=== PATIENT | male | born 1955 | race Caucasian/White ===

== ENCOUNTER 2017-09-10 20:49 | Emergency (ER) | payer BC ==
[2017-09-10 21:03] VITALS: BP 134/90; PULSE 74; TEMP 98; BMI 27.9
--- NOTE | 2017-09-10 22:11 | PDOC ---
History of Present Illness - General History Source: Patient Exam Limitations: No Limitations - History of Present Illness Initial Comments: 09/10/17 22:12 The patient is a 61 year old male, with significant past medical history of Crohns, HTN, mixed connective tissue disease and anxiety/depression, who presents today complaining of abdominal pain for approximately 5 days. The patient reports his abdominal pain began last Sunday and is diffuse and constant in nature. He describes it as a crampy ache. He rates it a 7-8/10. Patient reports his pain is worse with eating or drinking. He reports associated diarrhea, but denies any nausea, vomiting, or constipation. Patient reports presenting to [facility] yesterday, where he was hydrated and he began to feel mild alleviation. Today patient reports his diarrhea resolved, but his abdominal pain persists and is still cramping. He denies any associated weakness , body aches, malaise, fever, chills, cough, headache, or dizziness. He denies any dysuria, hematuria, frequency, or urgency. Allergies: NKDA Past Surgical History: Ileostomy Social History: Non smoker. No ETOH or recreational drug use. PCP: Dr. Vides <Baltazar Cevallos - Last Filed: 09/10/17 22:13> <Joselyn Cunha - Last Filed: 09/11/17 04:34> - General Chief Complaint: Pain, Acute Stated Complaint: ABDOMINAL CRAMPING X ONE WEEK Time Seen by Provider: 09/10/17 20:53 Past History <Baltazar Cevallos - Last Filed: 09/10/17 22:13> - Past Medical History COPD: No GI Disorders: Yes (CHRONE'S, COLITIS) HTN: Yes Psychiatric Problems: Yes (ANXIETY) Other medical history: DEPRESSION - Surgical History GI Surgery: Yes (ILEOSTOMY) - Immunization History Immunization Up to Date: Yes - Suicide/Smoking/Psychosocial Hx Smoking History: Never smoked Have you smoked in the past 12 months: No Information on smoking cessation initiated: No Hx Alcohol Use: No Drug/Substance Use Hx: No Substance Use Type: None <Joselyn Cunha - Last Filed: 09/11/17 04:34> - Past Medical History Allergies/Adverse Reactions: Allergies Allergy/AdvReac Type Severity Reaction Status Date / Time No Known Allergies Allergy Verified 09/10/17 20:51 Home Medications: Ambulatory Orders Frovatriptan Succinate [Frova] 2.5 mg PO DAILY PRN 10/08/15 Metoprolol Tartrate 50 mg PO BID 10/08/15 Ramipril 5 mg PO DAILY 10/08/15 Vilazodone Hydrochloride [Viibryd] 40 mg PO DAILY 09/10/16 Folic Acid 1 mg PO DAILY 09/10/17 Methotrexate Sodium [Methotrexate] 25 mg IJ WEEKLY 09/10/17 Hyoscyamine Sulfate [Levsin -] 0.125 mg PO Q8H PRN #10 tablet 09/11/17 Review of Systems - Review of Systems Able to Perform ROS?: Yes Comments:: 09/10/17 22:12 CONSTITUTIONAL: Absent: fever, no chills, no fatigue EYES: Absent: visual changes ENT: Absent: ear pain, no sore throat CARDIOVASCULAR: Absent: chest pain, no palpitations RESPIRATORY: Absent: cough, no SOB GI: Present: diffuse abdominal pain, diarrhea Absent: no nausea, no vomiting, no constipation GENITOURINARY: Absent: dysuria, no frequency, no hematuria MUSCULOSKELETAL: Absent: back pain, no arthralgia, no myalgia SKIN: Absent: rash NEURO: Absent: headache <Cevallos,Giomilsy - Last Filed: 09/10/17 22:13> *Physical Exam - Vital Signs Last Vital Signs Temp Pulse Resp BP Pulse Ox 98 F 74 16 134/90 100 09/10/17 20:59 09/10/17 20:59 09/10/17 20:59 09/10/17 20:59 09/10/17 20:59 <Cevallos,Giomilsy - Last Filed: 09/10/17 22:13> - Vital Signs Last Vital Signs Temp Pulse Resp BP Pulse Ox 98 F 74 16 134/90 100 09/10/17 20:59 09/10/17 20:59 09/10/17 20:59 09/10/17 20:59 09/10/17 20:59 - Physical Exam Comments: GENERAL: Adult male, alert and oriented 3, in mild distress secondary to abdominal cramping HEAD: Normal with no signs of trauma. EYES: PERRLA, EOMI, sclera anicteric, conjunctiva clear. ENT: Ears normal, nares patent, oropharynx clear without exudates. Dry mucous membranes. NECK: Normal range of motion, supple without lymphadenopathy, JVD, or masses. LUNGS: Breath sounds equal, clear to auscultation bilaterally. No wheezes, and no crackles. HEART:Regular rate and rhythm, normal S1 and S2 without murmur, rub or gallop. ABDOMEN:.normal bowel sounds; generalized minimal tenderness without guarding/ masses/rebound Ileostomy bag with minimal contents. NEUROLOGICAL: Cranial nerves II through XII grossly intact. Normal speech. No focal neurological deficits. MUSCULOSKELETAL: Back non-tender to palpation, no CVA tenderness SKIN: Warm, Dry, normal turgor, no rashes or lesions noted. <Joselyn Cunha - Last Filed: 09/11/17 04:34> ED Treatment Course - LABORATORY CBC & Chemistry Diagram: 09/10/17 11:20 <Joselyn Cunha - Last Filed: 09/11/17 04:34> Progress Note - Progress Note Progress Note: Documentation has been prepared under my direction and personally reviewed by me in its entirety. I attest that this documented accurately reflects all work, treatment, procedures and medical decision making performed by me. <Joselyn Cunha - Last Filed: 09/11/17 04:34> Medical Decision Making - Medical Decision Making As noted above, this 62-year-old man with a history of Crohn's disease presents with a few day history of diarrhea and intermittent abdominal cramping. He was seen in urgent care yesterday and received a liter of normal saline. Laboratory evaluation at that time showed moderate prerenal azotemia but no other significant abnormalities. Patient states that after receiving the IV fluids yesterday, he felt significantly better. Today, he attempted to keep up fluids orally but states that as the day went on, cramping pain continued. He has had no nausea or vomiting. He has been taking loperamide and there is been decreased liquid stool in the ileostomy bag. Exam as noted without evidence of point tenderness/rebound/masses. He does have somewhat dry mucous membranes. Since patient does not appear to be obstructed or critically dehydrated, IV hydration is not mandatory. Levsin 0.125 ODT will be given to the patient to help with his abdominal cramping. After Levsin, the patient feels some relief but requests that IV hydration be given since it was so effective yesterday (1 L of normal saline IV ordered). Chemistry profile sent shows mild prerenal azotemia but no other significant abnormalities. Patient feels significantly better after 1 L normal saline. Patient will be discharged with prescription for Levsin 0.125 milligrams ODT (# 10) that he should take up to 3 times a day over the next few days as he recovers from his gastroenteritis. He should return to the emergency room if he has recurrent severe abdominal pain or develops vomiting/fever <Joselyn Cunha - Last Filed: 09/11/17 04:34> *DC/Admit/Observation/Transfer - Attestations Scribe Attestion: 09/10/17 22:13 Documentation prepared by Baltazar Cevallos, acting as medical staff credentialing coordinator for Joselyn Cunha MD. <Baltazar Cevallos - Last Filed: 09/10/17 22:13> <Joselyn Cunha - Last Filed: 09/11/17 04:34> Diagnosis at time of Disposition: Gastroenteritis - Discharge Dispostion Disposition: HOME Condition at time of disposition: Stable - Prescriptions Prescriptions: Hyoscyamine Sulfate [Levsin -] 0.125 mg PO Q8H PRN #10 tablet PRN Reason: Pain - Referrals Referrals: Gela Camp MD [Primary Care Provider] - - Patient Instructions Printed Discharge Instructions: DI for Viral Gastroenteritis -- Adult Additional Instructions: drink plenty of fluids continue medications as prescribed Levsin ODT 0.125mg up to 3 X a day for cramping followup with DR Goldman within 1 week return to ER if you have worsening pain or experience vomiting/fever - Post Discharge Activity
[2017-09-10] MEDS ORDERED: HYOSCYAMINE SULFATE 0.125 MG *ODT ONE (22:49)
[2017-09-10] MEDS ORDERED: HYOSCYAMINE SULFATE 0.125 MG *ODT PO ONE (22:49)
[2017-09-10] MEDS ORDERED: SODIUM CHLORIDE 1,000 ML IV STA (23:19)
[2017-09-11 00:01] LABS: ALK PHOS 72 U/L (32-92); ANION GAP 9 (8-16); BILIRUBIN,TOTAL 1.2 mg/dl (0.2-1.0); CALCIUM 9.8 mg/dl (8.4-10.2); CO2 20 mmol/L (22-28); CREATININE 1.4 mg/dl (0.6-1.3); GLUCOSE,RANDOM 96 mg/dl (74-106); SGOT/AST 30 U/L (10-42); SGPT/ALT 49 U/L (10-40)
[2017-09-11] MEDS ORDERED: HYOSCYAMINE SULFATE 0.125 MG *ODT ONE (00:16)
== END 2017-09-11 00:32 | disposition home or self-care (01) ==
LOC: FER 20:49
PROC: 3E0337Z Introduction of Electrolytic and Water Balance Substance into Peripheral Vein, Percutaneous Approach (ICD-10-PCS; principal; 2017-09-10)
DX: K52.9 Noninfective gastroenteritis and colitis, unspecified (principal); I10 Essential (primary) hypertension; K50.90 Crohn's disease, unspecified, without complications; F41.8 Other specified anxiety disorders; M35.9 Systemic involvement of connective tissue, unspecified
CPT/HCPCS: 36415; 80053; 99281-25